=== PATIENT | male | born 1940 | race Caucasian/White ===

== ENCOUNTER → 2024-04-06 06:47 | Outpatient (REF) | payer MEDICARE, OTHER, SELFPAY ==
[2024-04-06 07:26] LABS: % Basophils 0.7 % (0-2); % Eosinophils 4.9 % (0-6); % Immature Granulocytes 0.3 % (0-0.5); % Lymphocytes 26.4 % (20.5-51.1); % Monocytes 9.7 % (1.7-9.3); Absolute Eosinophils 0.3 10^3/uL (0-0.7); Absolute Lymphocytes 1.6 10^3/uL (1.2-3.4); Absolute Monocytes 0.6 10^3/uL (0.1-0.6); Absolute Neutrophils 3.5 10^3/uL (1.4-6.5); Hematocrit 36.8 % (39.0-52.0); Hemoglobin 12.1 g/dL (13.0-18.0); Mean Corp Hgb Conc. 32.9 g/dL (33.0-37.0); Mean Corpuscular Hgb 29.2 pg (27.0-31.0); Mean Corpuscular Volume 88.9 fL (80.0-94.0); Mean Platelet Volume 9.9 fL (7.4-10.4); Nucleated Red Blood Cells % 0 % (-); Platelet Count 213 10^3/uL (130-400); Red Blood Cell Count 4.14 10^6/uL (4.70-6.10); Red Cell Dist. Width 12.3 % (11.5-14.5)
[2024-04-06 07:55] LABS: ALT (SGPT) 34 U/L (0-50); AST (SGOT) 28 U/L (17-59); Albumin 3.9 g/dl (3.5-5.0); Alkaline Phosphatase 82 U/L (38-126); Blood Urea Nitrogen 36 mg/dl (9-20); Carbon Dioxide 25 mmol/L (22-30); Chloride 104 mmol/L (98-107); Creatine Phosphokinase 82 U/L (55-170); Glucose 88 mg/dl (70-99); HDL Cholesterol 76 mg/dl; LDL Cholesterol, Calculated 65 mg/dl; Potassium 4.6 mmol/L (3.5-5.1); Sodium 137 mmol/L (135-145); Total Bilirubin 0.7 mg/dl (0.2-1.3); Total Cholesterol 154 mg/dl (50-199); Total Protein 6.5 g/dl (6.3-8.2); Triglyceride 68 mg/dl (10-149); Very Low Density Lipoprotein 13 mg/dl (0-30); eGFR 27.15
[2024-04-06 10:58] LABS: Intact PTH 216.9 pg/ml (13.6-85.8)
== END ==
LOC: REG 06:47
PROVIDERS: ATTENDING PHYSICIAN Internal Medicine
DX: E78.2 Mixed hyperlipidemia (principal); I10 Essential (primary) hypertension; E04.1 Nontoxic single thyroid nodule; I50.20 Unspecified systolic (congestive) heart failure; N18.32 Chronic kidney disease, stage 3b
CPT/HCPCS: 36415; 80053; 80061; 82550; 83970; 84443; 85025

== ENCOUNTER → 2024-04-18 12:52 | Outpatient (REF) | payer MEDICARE, OTHER, SELFPAY | LOC: HWRAD 12:52 | PROVIDERS: ATTENDING PHYSICIAN Nurse Practitioner Adult Health; FAMILY PHYSICIAN Internal Medicine | DX: G45.3 Amaurosis fugax (principal) | CPT/HCPCS: 93880 ==

== ENCOUNTER → 2024-06-30 16:14 | Outpatient (REF) | payer MEDICARE, OTHER, SELFPAY ==
[2024-06-30 18:27] LABS: PSA, Total - Diagnostic 3.01 ng/ml (0.0-4.0)
== END ==
LOC: REG 16:14
PROVIDERS: ATTENDING PHYSICIAN Specialist; FAMILY PHYSICIAN Internal Medicine
DX: R97.20 Elevated prostate specific antigen [PSA] (principal)
CPT/HCPCS: 36415; 84153

== ENCOUNTER → 2024-10-06 07:53 | Outpatient (REF) | payer MEDICARE, OTHER, SELFPAY ==
[2024-10-06 09:00] LABS: Hematocrit 37.4 % (39.0-52.0); Hemoglobin 12.3 g/dL (13.0-18.0); Mean Corp Hgb Conc. 32.9 g/dL (33.0-37.0); Mean Corpuscular Hgb 29.6 pg (27.0-31.0); Mean Corpuscular Volume 89.9 fL (80.0-94.0); Mean Platelet Volume 9.5 fL (7.4-10.4); Platelet Count 258 10^3/uL (130-400); Red Blood Cell Count 4.16 10^6/uL (4.70-6.10); Red Cell Dist. Width 12.7 % (11.5-14.5); White Blood Cell Count 5.1 10^3/uL (4.8-10.8)
[2024-10-06 09:41] LABS: Albumin 3.7 g/dl (3.5-5.0); Blood Urea Nitrogen 38 mg/dl (9-20); Calcium 8.9 mg/dl (8.4-10.2); Carbon Dioxide 23 mmol/L (22-30); Chloride 106 mmol/L (98-107); Glucose 86 mg/dl (70-99); Phosphorus 3.4 mg/dl (2.5-4.5); Potassium 4.5 mmol/L (3.5-5.1); Sodium 137 mmol/L (135-145)
[2024-10-06 10:54] LABS: Protein/creatinine Ratio 4.2; Urine Protein 111 mg/dl
[2024-10-08 08:48] LABS: Intact PTH 160.3 pg/ml (13.6-85.8)
== END ==
LOC: REG 07:53
PROVIDERS: ATTENDING PHYSICIAN Specialist
DX: N18.4 Chronic kidney disease, stage 4 (severe) (principal)
CPT/HCPCS: 36415; 80069; 82570; 83970; 84156; 85027

== ENCOUNTER → 2024-10-20 09:01 | Outpatient (REF) | payer MEDICARE, OTHER, SELFPAY ==
[2024-10-20 10:39] LABS: 24 Hour Urine Total Volume 1750 ml
[2024-10-20 11:43] LABS: 24 Hour Urine Creatinine 1.183 gm/day (1.0-2.0); Urine Protein 160 mg/dl (0-12)
== END ==
LOC: REG 09:01
PROVIDERS: ATTENDING PHYSICIAN Specialist; FAMILY PHYSICIAN Internal Medicine
DX: I10 Essential (primary) hypertension (principal); R80.9 Proteinuria, unspecified; E78.2 Mixed hyperlipidemia
CPT/HCPCS: 81050; 82570; 84156

== ENCOUNTER 2024-12-16 12:58 | Outpatient (RCR) | payer MEDICARE, OTHER, SELFPAY | END 2024-12-16 23:59 | disposition home or self-care (01) | LOC: RPT 12:58 | PROVIDERS: ATTENDING PHYSICIAN Internal Medicine | DX: M54.2 Cervicalgia (principal); Z73.6 Limitation of activities due to disability; R20.0 Anesthesia of skin; M79.601 Pain in right arm | CPT/HCPCS: 97110; 97162 ==

== ENCOUNTER 2025-01-09 06:18 | Day surgery (SDC) | payer MEDICARE, OTHER, SELFPAY | END 2025-01-09 14:38 | disposition home or self-care (01) | LOC: GI 06:18 | PROVIDERS: ATTENDING PHYSICIAN Internal Medicine Gastroenterology | DX: Z12.11 Encounter for screening for malignant neoplasm of colon (principal); K57.30 Diverticulosis of large intestine without perforation or abscess without bleeding; K64.8 Other hemorrhoids; Z86.0100 Personal history of colon polyps, unspecified | CPT/HCPCS: G0105 ==

== ENCOUNTER 2025-01-13 12:52 | Outpatient (RCR) | payer MEDICARE, OTHER, SELFPAY | END 2025-01-13 23:59 | disposition home or self-care (01) | LOC: RPT 12:52 | PROVIDERS: ATTENDING PHYSICIAN Internal Medicine | DX: M54.2 Cervicalgia (principal); Z73.6 Limitation of activities due to disability; M79.601 Pain in right arm; M62.81 Muscle weakness (generalized) | CPT/HCPCS: 97010; 97110; 97112 ==

== ENCOUNTER → 2025-03-24 08:05 | Outpatient (REF) | payer MEDICARE, OTHER, SELFPAY ==
[2025-03-24 09:14] LABS: Hematocrit 35.6 % (39.0-52.0); Mean Corp Hgb Conc. 33.7 g/dL (33.0-37.0); Mean Corpuscular Hgb 29.6 pg (27.0-31.0); Mean Corpuscular Volume 87.9 fL (80.0-94.0); Mean Platelet Volume 10.1 fL (7.4-10.4); Platelet Count 211 10^3/uL (130-400); Red Blood Cell Count 4.05 10^6/uL (4.70-6.10); Red Cell Dist. Width 12.5 % (11.5-14.5); White Blood Cell Count 5.8 10^3/uL (4.8-10.8)
[2025-03-24 09:44] LABS: ALT (SGPT) 43 U/L (0-50); AST (SGOT) 38 U/L (17-59); Albumin 4.2 g/dl (3.5-5.0); Alkaline Phosphatase 85 U/L (38-126); Blood Urea Nitrogen 47 mg/dl (9-20); Calcium 9.2 mg/dl (8.4-10.2); Carbon Dioxide 22 mmol/L (22-30); Chloride 106 mmol/L (98-107); Glucose 87 mg/dl (70-99); HDL Cholesterol 72 mg/dl; LDL Cholesterol, Calculated 75 mg/dl; Potassium 4.5 mmol/L (3.5-5.1); Sodium 140 mmol/L (135-145); Total Bilirubin 0.7 mg/dl (0.2-1.3); Total Cholesterol 159 mg/dl (50-199); Total Protein 6.6 g/dl (6.3-8.2); Triglyceride 61 mg/dl (10-149); Very Low Density Lipoprotein 12 mg/dl (0-30); eGFR 22.26
[2025-03-24 10:56] LABS: Urine Albumin 3+ (Neg - Trace); Urine Bilirubin Negative (Negative); Urine Character Clear (Clear); Urine Color Yellow; Urine Glucose Negative (Negative); Urine Ketone Negative (Negative); Urine Leukocyte Negative (Negative); Urine Nitrite Negative (Negative); Urine Occult Blood 1+ (Negative); Urine Urobilinogen Negative (Neg - 1+); Urine pH 6.5 (5.0-9.0)
[2025-03-24 11:57] LABS: Urine Red Blood Cell 0-2 /HPF (0-2); Urine White Cell 0-2 /HPF (0-5)
[2025-03-24 14:41] LABS: Protein/creatinine Ratio 6.2; Urine Protein 123 mg/dl
[2025-03-25 11:07] LABS: Intact PTH 145.9 pg/ml (13.6-85.8)
== END ==
LOC: REG 08:05
PROVIDERS: ATTENDING PHYSICIAN Specialist; FAMILY PHYSICIAN Internal Medicine
DX: N18.4 Chronic kidney disease, stage 4 (severe) (principal)
CPT/HCPCS: 36415; 80053; 80061; 81003; 81015; 82570; 83970; 84156; 85027

== ENCOUNTER → 2025-04-13 08:02 | Outpatient (REF) | payer MEDICARE, OTHER, SELFPAY ==
[2025-04-13 09:09] LABS: 24 Hour Urine Total Volume 2650 ml
[2025-04-13 09:52] LABS: Albumin 3.9 g/dl (3.5-5.0); Blood Urea Nitrogen 42 mg/dl (9-20); Calcium 9.3 mg/dl (8.4-10.2); Carbon Dioxide 22 mmol/L (22-30); Chloride 110 mmol/L (98-107); Glucose 87 mg/dl (70-99); Phosphorus 3.8 mg/dl (2.5-4.5); Potassium 4.6 mmol/L (3.5-5.1); Sodium 138 mmol/L (135-145); eGFR 23.29
[2025-04-13 15:10] LABS: 24 Hour Urine Creatinine 1.306 gm/day (1.0-2.0); 24 Hour Urine Protein 4743.5 mg/day (42-225); Urine Protein 179 mg/dl (0-12)
== END ==
LOC: REG 08:02
PROVIDERS: ATTENDING PHYSICIAN Specialist; FAMILY PHYSICIAN Internal Medicine
DX: I10 Essential (primary) hypertension (principal); R80.9 Proteinuria, unspecified; N18.4 Chronic kidney disease, stage 4 (severe)
CPT/HCPCS: 36415; 80069; 81050; 82570; 84156

== ENCOUNTER → 2025-05-25 09:42 | Outpatient (REF) | payer MEDICARE, OTHER, SELFPAY ==
[2025-05-29 12:03] LABS: 24 Hour Urine Total Volume 2350 ml
== END ==
LOC: RCS 09:42
PROVIDERS: ATTENDING PHYSICIAN Nurse Practitioner; FAMILY PHYSICIAN Internal Medicine; REFERRING PHYSICIAN Specialist
DX: R00.0 Tachycardia, unspecified (principal); I49.3 Ventricular premature depolarization; I45.10 Unspecified right bundle-branch block; I34.0 Nonrheumatic mitral (valve) insufficiency; I35.1 Nonrheumatic aortic (valve) insufficiency; I10 Essential (primary) hypertension; N18.32 Chronic kidney disease, stage 3b; R80.9 Proteinuria, unspecified
CPT/HCPCS: 81050; 82570; 84156; 93306

== ENCOUNTER → 2025-07-04 16:00 | Outpatient (REF) | payer MEDICARE, OTHER, SELFPAY ==
[2025-07-04 17:24] LABS: PSA, Total - Diagnostic 3.13 ng/ml (0.0-4.0)
== END ==
LOC: REG 16:00
PROVIDERS: ATTENDING PHYSICIAN Specialist; FAMILY PHYSICIAN Internal Medicine
DX: R97.20 Elevated prostate specific antigen [PSA] (principal)
CPT/HCPCS: 36415; 84153

== ENCOUNTER → 2025-10-09 07:51 | Outpatient (REF) | payer MEDICARE, OTHER, SELFPAY ==
[2025-10-09 09:22] LABS: Hematocrit 34.3 % (39.0-52.0); Hemoglobin 11.4 g/dL (13.0-18.0); Mean Corp Hgb Conc. 33.2 g/dL (33.0-37.0); Mean Corpuscular Volume 89.6 fL (80.0-94.0); Platelet Count 230 10^3/uL (130-400); Red Cell Dist. Width 12.7 % (11.5-14.5)
[2025-10-09 10:38] LABS: Albumin 4.0 g/dl (3.5-5.0); Blood Urea Nitrogen 51 mg/dl (9-20); Calcium 9.4 mg/dl (8.4-10.2); Carbon Dioxide 23 mmol/L (22-30); Chloride 109 mmol/L (98-107); Glucose 86 mg/dl (70-99); Iron 114 ug/dl (49-181); Potassium 4.8 mmol/L (3.5-5.1); Sodium 137 mmol/L (135-145); eGFR 19.49
[2025-10-09 10:47] LABS: Total Iron Binding Capacity 302 ug/dl (261-462)
[2025-10-09 11:05] LABS: Ferritin 43.5 ng/ml (17.9-464.0)
== END ==
LOC: REG 07:51
PROVIDERS: ATTENDING PHYSICIAN Specialist; FAMILY PHYSICIAN Internal Medicine
DX: N18.4 Chronic kidney disease, stage 4 (severe) (principal)
CPT/HCPCS: 36415; 80069; 82728; 83540; 83550; 85027

== ENCOUNTER → 2025-10-28 07:51 | Outpatient (REF) | payer MEDICARE, OTHER, SELFPAY ==
[2025-10-28 09:45] LABS: Hematocrit 33.9 % (39.0-52.0); Hemoglobin 11.2 g/dL (13.0-18.0); Mean Corp Hgb Conc. 33.0 g/dL (33.0-37.0); Mean Corpuscular Volume 88.3 fL (80.0-94.0); Platelet Count 222 10^3/uL (130-400); Red Cell Dist. Width 12.7 % (11.5-14.5)
[2025-10-28 10:18] LABS: Albumin 4.0 g/dl (3.5-5.0); Blood Urea Nitrogen 50 mg/dl (9-20); Calcium 9.1 mg/dl (8.4-10.2); Carbon Dioxide 20 mmol/L (22-30); Chloride 109 mmol/L (98-107); Glucose 86 mg/dl (70-99); Iron 93 ug/dl (49-181); Potassium 4.5 mmol/L (3.5-5.1); Sodium 135 mmol/L (135-145); eGFR 19.49
[2025-10-28 10:28] LABS: Total Iron Binding Capacity 312 ug/dl (261-462)
[2025-10-28 10:45] LABS: Ferritin 36.7 ng/ml (17.9-464.0)
== END ==
LOC: REG 07:51
PROVIDERS: ATTENDING PHYSICIAN Specialist; FAMILY PHYSICIAN Internal Medicine
DX: I10 Essential (primary) hypertension (principal); R80.9 Proteinuria, unspecified; E78.2 Mixed hyperlipidemia; N18.4 Chronic kidney disease, stage 4 (severe); M54.50 Low back pain, unspecified
CPT/HCPCS: 36415; 72110; 80069; 82728; 83540; 83550; 83970; 85027